=== PATIENT | male | born 1985 | race Caucasian/White ===

== ENCOUNTER 2016-11-17 14:35 | Emergency (ER) | payer OTHER ==
[2016-11-17] MEDS ORDERED: LIDO 2%/EPI 1:200000 PRESRVFRE (20 ML SDVIAL) ONE (14:54)
[2016-11-17 15:00] VITALS: BP 115/65; PULSE 96; TEMP 98.3; BMI 23.7
[2016-11-17] MEDS ORDERED: DIPHTH,PERTUSS(ACELL),TET 0.5 ML DISP.SYRIN IM ONE (15:06)
--- NOTE | 2016-11-17 15:12 | PDOC ---
History of Present Illness - General History Source: Patient Exam Limitations: No Limitations - History of Present Illness Initial Comments: 11/17/16 15:15 The patient is a 31 year old male with no significant past medical history of who presents to the ED with an injury to his left forearm earlier today. The patient reports he was at work when he stumbled and braced his left arm on the wedge of a wheel barrel. He reports a pressure like sensation and slight numbness in his left arm but denies any pain. Upon examination, the patient notes tingling in his first, second, and third digits. 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 Patient lives at home with family. <Octavio Wynn - Last Filed: 11/17/16 16:13> <Bassam Santiago - Last Filed: 11/29/16 07:25> - General Chief Complaint: Laceration Stated Complaint: LEFT FOREARM LACERATION Time Seen by Provider: 11/17/16 14:45 Past History <Octavio Wynn - Last Filed: 11/17/16 16:13> - Past Medical History Suicide Attempt (Hx): No - Psycho/Social/Smoking Cessation Hx Anxiety: No Suicidal Ideation: No Smoking History: Never smoked Hx Alcohol Use: Yes (WEEKENDS IN MODERATION) Drug/Substance Use Hx: No Substance Use Type: None <Bassam Santiago - Last Filed: 11/29/16 07:25> - Past Medical History Allergies/Adverse Reactions: Allergies Allergy/AdvReac Type Severity Reaction Status Date / Time venom-honey bee Allergy Hives Verified 02/15/15 11:02 [bee venom (honey bee)] Home Medications: Ambulatory Orders NK [No Known Home Medication] 11/17/16 Review of Systems - Review of Systems Able to Perform ROS?: Yes Comments:: 11/17/16 15:15 CONSTITUTIONAL: No reported: Fever, Chills, Diaphoresis, Generalized Weakness, Malaise, Loss of Appetite HEENT: No reported: Rhinorrhea, Nasal Congestion, Throat Pain, Throat Swelling, Difficulty Swallowing, Mouth Swelling, Ear Pain, Eye Pain, Visual Changes CARDIOVASCULAR: No reported: Chest Pain, Syncope, Palpitations, Irregular Heart Rate, Lightheadedness, Peripheral Edema RESPIRATORY: No reported: Cough, Shortness of Breath, SOB with Exertion, Orthopnea, Wheezing , Stridor, Hemoptysis GASTROINTESTINAL: No reported: Abdominal pain, Abdominal Distension, Nausea, Vomiting, Diarrhea, Constipation, Melena, Hematochezia GENITOURINARY: No reported: Dysuria, Frequency, Urgency, Hesitancy, Flank Pain, Genital Pain MUSCULOSKELETAL: No reported: Myalgia, Arthralgia, Joint Swelling, Back pain, Neck Pain SKIN: + let forearm injury No reported: Rash, Itching, Pallor HEMEATOLOGIC/IMMUNOLOGIC: No reported: Easy Bleeding, Easy Bruising, Lymphadenopathy, Frequent infections ENDOCRINE: No reported: Unexplained Weight Gain, Unexplained Weight Loss, Heat Intolerance , Cold Intolerance NEUROLOGIC: + left arm numbness, left digit tingling No reported: Headache, Paresthesias, Vertigo, Lightheadedness, Unsteady Gait, Seizure, Mental Status Changes, Incontinence PSYCHIATRIC: No reported: Anxiety, Depression <Octavio Wynn - Last Filed: 11/17/16 16:13> *Physical Exam - Vital Signs Last Vital Signs Temp Pulse Resp BP Pulse Ox 98.3 F 96 H 16 115/65 97 11/17/16 14:44 11/17/16 14:44 11/17/16 14:44 11/17/16 14:44 11/17/16 14:44 - Physical Exam Comments: 11/17/16 16:13 GENERAL: Well developed, well nourished. Awake and alert. No acute distress. HEENT: Normocephalic, atraumatic. PERRLA, EOMI. No conjunctival pallor. Sclera are non- icteric. Moist mucous membranes. Oropharynx is clear. NECK: Supple. Full ROM. No JVD. Carotid pulses 2+ and symmetric, without bruits. No thyromegaly. No lymphadenopathy. CARDIOVASCULAR: Regular rate and rhythm. No murmurs, rubs, or gallops. Distal pulses are 2+ and symmetric. PULMONARY: No evidence of respiratory distress. Lungs clear to auscultation bilaterally. No wheezing, rales or rhonchi. ABDOMINAL: Soft. Non-tender. Non-distended. No rebound or guarding. No organomegaly. Normoactive bowel sounds. MUSCULOSKELETAL Normal range of motion at all joints. No bony deformities or tenderness. No CVA tenderness. EXTREMITIES: No cyanosis. No clubbing. No edema. No calf tenderness. SKIN: + 10 cm longitudinal laceration in the ulnar aspect of left mid forearm extending through fat and fascia with muscle intact. Patient describes mild tingling through fingers 1,2, and 3, no sensory deficit to pinprick or light touch. tendon function to the wrist in all 5 digits is intact, strong against resistance.Pulses are full, radial and ulnar, and capillary refill with all 5 digits are prompt and full. No other trauma is noted to forearm or hand. No deformity or swelling suggestive of injury to the bone NEUROLOGICAL: Alert, awake, appropriate. Cranial nerves 2-12 intact. No deficits to light touch and temperature in face, upper extremities and lower extremities. No motor deficits in the in face, upper extremities and lower extremities. Normoreflexic in the upper and lower extremities. Normal speech. Toes are down- going bilaterally. Gait is normal without ataxia. PSYCHIATRIC: Cooperative. Good eye contact. Appropriate mood and affect. <Octavio Wynn - Last Filed: 11/17/16 16:13> - Vital Signs Last Vital Signs Temp Pulse Resp BP Pulse Ox 98.3 F 96 H 16 115/65 97 11/17/16 14:44 11/17/16 14:44 11/17/16 14:44 11/17/16 14:44 11/17/16 14:44 <Bassam Santiago - Last Filed: 11/29/16 07:25> Medical Decision Making - Medical Decision Making 11/29/16 07:20 Procedure note: Repair of laceration. Local anesthetic was administered, 1% lidocaine, plain, with good anesthesia The wound was copiously scrubbed and irrigated with normal saline. It was explored. It appeared to be superficial, with no tendons exposed. There were no punctures noted. There was no devitalized tissue in need of deep breathing The fascia and subcutaneous tissue was closed with absorbable 4-0 suture The skin was closed with 4-0 nylon interrupted skin sutures. Hemostasis was complete. The wound was dressed with bacitracin, 4 x 4, and Jocelynn. Wound care was discussed with the patient. He was fully ambulatory and in no pain or other discomfort upon discharge with family to follow-up with plastic surgeon/hand specialist within 3-5 days Possibility of a radial nerve injury was discussed with the patient and his family. Although there was no demonstrable sensory or motor deficit, the patient complained of mild tingling in the first [address] Rinaldi was contacted by phone. The nature of the injury was discussed with him, including the sensory symptoms. He recommended skin closure now, with close follow-up in 2 -3 days to assess nerve function, and repair at that time if necessary. The patient was given a referral to Dr. Rinaldi as discussed. <Bassam Santiago - Last Filed: 11/29/16 07:25> *DC/Admit/Observation/Transfer <Octavio Wynn - Last Filed: 11/17/16 16:13> - Discharge Dispostion Admit: No <Bassam Santiago - Last Filed: 11/29/16 07:25> Diagnosis at time of Disposition: Laceration of forearm Qualifiers: Encounter type: initial encounter Laterality: left Qualified Code(s): S51.812A - Laceration without foreign body of left forearm, initial encounter Radial nerve injury Qualifiers: Encounter type: initial encounter Location of peripheral nerve injury: forearm Laterality: left Qualified Code(s): S54.22XA - Injury of radial nerve at forearm level, left arm, initial encounter - Discharge Dispostion Disposition: HOME Condition at time of disposition: Good - Referrals Referrals: Hari Rinaldi MD [Staff Physician] - 3 days - Patient Instructions Printed Discharge Instructions: DI for Laceration Repair -- Complex Suture Additional Instructions: Rest, elevate, wound care is discussed Recheck immediately if sign of infection As we discussed, there is the possibility of a nerve injury that may have to be repaired surgically. Plastic surgeon (hand surgeon) has been contacted and the case was discussed with him. He recommended that if the nerve is damage, it be repaired at a later time. He recommended that at present we just repair the laceration, but it is important that you see him or another hand specialist of your choosing within the next 3-5 days to assess and treat the possible nerve injury to avoid further disability.
== END 2016-11-17 16:17 | disposition home or self-care (01) ==
LOC: FER 14:35
PROC: 3E0234Z Introduction of Serum, Toxoid and Vaccine into Muscle, Percutaneous Approach (ICD-10-PCS; principal; 2016-11-17)
DX: S51.812A Laceration without foreign body of left forearm, initial encounter (principal); S54.22XA Injury of radial nerve at forearm level, left arm, initial encounter; W22.8XXA Striking against or struck by other objects, initial encounter; Y93.9 Activity, unspecified; Y92.9 Unspecified place or not applicable; Y99.0 Civilian activity done for income or pay
CPT/HCPCS: 90715; 99282-25